=== PATIENT | female | born 1990 | race African-American/Black ===

== ENCOUNTER 2023-09-22 17:42 | Emergency (ER) | payer OTHER, SELFPAY ==
[2023-09-22] MEDS ORDERED: Acetaminophen 500 MG TAB ONE (18:10)
== END 2023-09-22 18:28 | disposition home or self-care (01) ==
LOC: MADERS 17:42
DX: S16.1XXA Strain of muscle, fascia and tendon at neck level, initial encounter (principal); S29.011A Strain of muscle and tendon of front wall of thorax, initial encounter; K21.9 Gastro-esophageal reflux disease without esophagitis; F31.9 Bipolar disorder, unspecified; K29.70 Gastritis, unspecified, without bleeding; F17.290 Nicotine dependence, other tobacco product, uncomplicated; X58.XXXA Exposure to other specified factors, initial encounter; Z55.6 Problems related to health literacy
CPT/HCPCS: 99284